=== PATIENT | male | born 1955 | race Caucasian/White ===

== ENCOUNTER 2018-11-12 09:50 | Emergency (ER) | payer OTHER ==
[2018-11-12 10:29] VITALS: BP 124/82
--- NOTE | 2018-11-12 10:53 | UC ---
Throat Pain/Nasal Anselmo HPI - HPI Summary HPI Summary: 63-year-old male 63-year-old male comes in with a chief complaint of 2 weeks of upper respiratory tract infection symptoms. Had some runny nose but not very much he does have postnasal drip. He feels chest congestion has been bringing up green sputum. No recent fevers. He's had a persistent cough and a sore throat. He's been using [id number] medications which do help some with the symptoms with not very much. He does have some edema but he tells me is chronic lymph edema. - History of Current Complaint Chief Complaint: UCRespiratory Stated Complaint: URI Time Seen by Provider: 11/12/18 10:35 Pain Intensity: 2 - Allergies/Home Medications Allergies/Adverse Reactions: Allergies Allergy/AdvReac Type Severity Reaction Status Date / Time No Known Allergies Allergy Verified 11/12/18 10:29 Home Medications: Home Medications Guaifenesin/Pseudo 600/60(NF) [Mucinex D 600/60 (NF)] 2 tab PO Q12H 11/12/18 [ History Confirmed 11/12/18] Loratadine [Claritin 10 MG CAP] 10 mg PO 11/12/18 [History] PMH/Surg Hx/FS Hx/Imm Hx Previously Healthy: Yes - Surgical History Surgical History: Yes Surgery Procedure, Year, and Place: LEFT EAR SURGERY,tonsilectomy, hernia, back, left hand, - Family History Known Family History: Positive: Non-Contributory - Social History Alcohol Use: None Substance Use Type: None Smoking Status (MU): Never Smoked Tobacco Review of Systems All Other Systems Reviewed And Are Negative: Yes Constitutional: Positive: Other - see hpi Skin: Positive: Negative Eyes: Positive: Negative ENT: Positive: Sore Throat, Nasal Discharge, Sinus Congestion Respiratory: Positive: Cough, Other - see hpi Cardiovascular: Positive: Negative Gastrointestinal: Positive: Negative Motor: Positive: Negative Neurovascular: Positive: Negative Musculoskeletal: Positive: Edema Neurological: Positive: Negative Psychological: Positive: Negative Is Patient Immunocompromised?: No Physical Exam Triage Information Reviewed: Yes Appearance: No Pain Distress, Well-Nourished, Ill-Appearing - mild Vital Signs: Initial Vital Signs Temp 97.9 F 11/12/18 10:26 Pulse 82 11/12/18 10:26 Resp 18 06/16/19 10:26 BP 124/82 11/12/18 10:26 Pulse Ox 97 11/12/18 10:26 Vital Signs Reviewed: Yes Eye Exam: Normal Eyes: Positive: Conjunctiva Clear ENT: Positive: Pharyngeal erythema, Nasal congestion, Nasal drainage, TMs normal Neck: Positive: Supple Respiratory: Positive: No respiratory distress, Rhonchi Cardiovascular: Positive: RRR Musculoskeletal: Positive: Strength Intact, ROM Intact, Edema @ - b/l, patient reports is chronic Neurological: Positive: Alert, Muscle Tone Normal Psychological Exam: Normal Psychological: Positive: Age Appropriate Behavior Skin Exam: Normal Throat Pain/Nasal Course/Dx - Differential Dx/Diagnosis Provider Diagnosis: Bronchitis with bronchospasm Discharge - Sign-Out/Discharge Documenting (check all that apply): Patient Departure All imaging exams completed and their final reports reviewed: No Studies - Discharge Plan Condition: Stable Disposition: HOME Prescriptions: Albuterol HFA INHALER* [Ventolin HFA Inhaler*] 2 puff INH Q4H PRN #1 mdi PRN Reason: Wheezing Benzonatate CAP* [Tessalon 100 MG CAP*] 100 mg PO TID PRN #20 cap PRN Reason: Cough DOXYcycline CAP(*) [DOXYcycline 100MG CAP(*)] 100 mg PO BID #28 cap Patient Education Materials: Acute Bronchitis (ED), Bronchospasm (ED) Referrals: Walker Hughes MD [Primary Care Provider] - Additional Instructions: FOLLOW UP WITH YOUR DOCTOR IF NOT COMPLETELY IMPROVED. GET RECHECKED SOONER IF YOUR CONDITION WORSENS OR ANY QUESTIONS OR CONCERNS. - Billing Disposition and Condition Condition: STABLE Disposition: Home
== END 2018-11-12 11:04 | disposition home or self-care (01) ==
LOC: UCEAST 09:50
DX: J20.9 Acute bronchitis, unspecified (principal)
CPT/HCPCS: 99212; G0463

== ENCOUNTER 2019-07-30 07:10 | Day surgery (SDC) | payer OTHER ==
[~2019-07-30 07:10] MED LIST: Acetaminophen TAB* 325 MG PO ONE; Buffered Lidocaine 1% SYRIN* 1 ML/SYRINGE INTRADERM ONE; HYDROmorphone INJ1* 1 MG/ML SYRINGE IV PRN; Lactated Ringers 1000 ML Bag* 1,000 ML IV SCH; Naloxone* 0.4 MG/ML 1 ML VIAL IV PRN; PROCHLORPERAZINE INJ 5 MG/ML 2 ML VIAL IV PRN; diPHENhydraMINE IV* 50 MG/ML 1 ml VIAL (BENADRYL) IV PRN; oxyCODONE TAB* 5 MG TAB PO PRN
[2019-07-30] MEDS ORDERED: Acetaminophen TAB* 325 MG ONE (07:38)
[2019-07-30] MEDS ORDERED: ceFAZolin 2 GM in NS PREMIX(*) 2 GM/100 ML BAG IVPB ONE (07:38)
[2019-07-30] MEDS ORDERED: Midazolam* 1 MG/ML 2 ML VIAL (2 MG) ONE (08:00)
[2019-07-30] MEDS ORDERED: fentaNYL* 50 MCG/ML 5 ML VIAL (250 MCG VIAL) ONE (08:00)
[2019-07-30] MEDS ORDERED: Rocuronium* 10 MG/ML VIAL ONE (08:02)
[2019-07-30] MEDS ORDERED: Bupivacaine 0.5%* 50 ML MDV VIAL ONE (08:55)
[2019-07-30] MEDS ORDERED: Propofol* 10 MG/ML 20 ML BTL ONE ×4 (08:56→12:04)
[2019-07-30] MEDS ORDERED: Dexamethasone IV* 4 MG/ML 1 ML (4 MG) ONE ×2 (09:24→11:21)
[2019-07-30] MEDS ORDERED: Neostigmine Methylsulfate* 3 MG/3 ML SYRINGE ONE (09:35)
[2019-07-30] MEDS ORDERED: Glycopyrrolate IV* 0.2 MG/ML 1 ML VIAL ONE (09:35)
[2019-07-30] MEDS ORDERED: Ondansetron INJ* 2 MG/ML VIAL ONE (09:35)
[2019-07-30] MEDS ORDERED: Ketorolac INJ* 30 MG/ML 1 ML VIAL ONE (09:35)
[2019-07-30] MEDS ORDERED: HYDROmorphone INJ1* 1 MG/ML SYRINGE ONE (10:24)
[2019-07-30 12:44] VITALS: BP 120/85
--- NOTE | 2019-07-31 01:55 | OP ---
DATE OF OPERATION: 07/30/19 - [facility] DATE OF : 53 SURGEON: Dewayne Elizalde MD. FEED CRUSHER: GARRY Ricks. PRE-OP DIAGNOSIS: Umbilical hernia. POST-OP DIAGNOSIS: Umbilical hernia. OPERATIVE PROCEDURE: Repair of umbilical hernia with mesh, robotic. INDICATIONS FOR PROCEDURE: Umbilical hernia. Risks included, but not limited to, bleeding, infection, injury to the intraabdominal contents, recurrence of the hernia were explained to the patient who seemed to understand and agreed to the procedure and all questions answered. DESCRIPTION OF PROCEDURE: The patient was taken to the operating room, placed supine. Preoperative antibiotics given. After the successful induction of general endotracheal anesthesia, the abdomen was prepped and draped in sterile fashion. A time-out was performed indicating correct patient, correct procedure. Trocars were placed in the left upper quadrant, left midline, and left lower quadrant respectively under direct visualization of the camera. Pneumo-peritoneum was achieved at 12 mmHg. After the first trocar was placed, the abdomen was scanned with the camera and no obvious injury was noted. The peritoneum was taken down. A large lipoma was removed from the defect. The defect was closed with a running 0 barbed PDS suture. Mesh was tacked up against this with the same suture and sutured in place around the periphery of the mesh. The peritoneum was closed with 3-0 V-Loc suture. Both needles were removed. The abdomen was scanned. No obvious injuries were noted. Pneumoperitoneum was released from the abdomen and the trocars were removed. The skin was closed with Monocryl and glue was applied to the skin. He tolerated the procedure well. [id number]/[facility] #: [id number] [facility]
== END 2019-07-30 12:47 | disposition home or self-care (01) ==
LOC: OR 07:10
PROVIDERS: ATTEND Surgery
DX: K42.9 Umbilical hernia without obstruction or gangrene (principal); G40.89 Other seizures; R00.0 Tachycardia, unspecified; I89.0 Lymphedema, not elsewhere classified; F51.3 Sleepwalking [somnambulism]; G47.8 Other sleep disorders; F41.8 Other specified anxiety disorders
CPT/HCPCS: 49652; S2900; A9270-GY; C1781; J0690; J1100; J1170; J1885; J2250; J2405; J2704; J2710; J3010; J3490